=== PATIENT | female | born 1955 | race Caucasian/White ===

== ENCOUNTER 2024-09-07 20:20 | Emergency (ER) | payer OTHER, MEDICARE ==
[~2024-09-07] VITALS: Ht 160 cm; Wt 113.4 kg
== END 2024-09-08 06:08 | disposition home or self-care (01) ==
LOC: ER 20:20
DX: S09.90XA Unspecified injury of head, initial encounter (principal); S16.1XXA Strain of muscle, fascia and tendon at neck level, initial encounter; S29.012A Strain of muscle and tendon of back wall of thorax, initial encounter; I10 Essential (primary) hypertension; E11.9 Type 2 diabetes mellitus without complications; E78.5 Hyperlipidemia, unspecified; M19.90 Unspecified osteoarthritis, unspecified site; G47.00 Insomnia, unspecified; W01.0XXA Fall on same level from slipping, tripping and stumbling without subsequent striking against object, initial encounter; Z91.040 Latex allergy status; Z88.8 Allergy status to other drugs, medicaments and biological substances
CPT/HCPCS: 70450; 72070; 72125; 72128; 99284-25

== ENCOUNTER 2024-10-04 21:59 | Emergency (ER) | payer OTHER ==
[~2024-10-04] VITALS: Ht 162.6 cm; Wt 113.4 kg
[2024-10-04 22:31] LABS: BASOPHILS ABSOLUTE AUTO 0.04 K/mm3 (0.00-0.23); BASOPHILS PERCENT AUTO 0 % (0-2); EOSINOPHILS PERCENT AUTO 1 % (0-6); Hematocrit 33.3 % (33.0-51.0); Hemoglobin 9.7 g/dL (11.5-16.0); IMMATURE GRAN ABSOLUTE AUTO 0.05 K/mm3 (0.00-0.10); IMMATURE GRAN PERCENT AUTO 1 % (0-1); LYMPHOCYTES ABSOLUTE AUTO 0.59 K/mm3 (0.84-5.20); LYMPHOCYTES PERCENT AUTO 6 % (21-46); MONOCYTES PERCENT AUTO 7 % (4-13); Mean Corpuscular HGB 21.4 pg (26.0-34.0); Mean Corpuscular HGB Conc 29.1 g/dL (31.5-36.5); Mean Corpuscular Volume 74 fL (80-100); Mean Platelet Volume 9.4 fL (9.1-12.4); NEUTROPHILS ABSOLUTE AUTO 9.15 K/mm3 (1.96-9.15); NEUTROPHILS PERCENT AUTO 86 % (41-73); Platelet Count 272 K/mm3 (150-400); RDW Coefficient Variation 18.2 % (11.7-14.2); Red Blood Cell Count 4.53 M/mm3 (3.80-5.20); White Blood Cell Count 10.63 K/mm3 (4.00-11.30)
[2024-10-04 22:57] LABS: Albumin, Blood 3.1 g/dL (3.4-5.0); Albumin/Globulin Ratio 0.7 (0.8-1.8); Bilirubin, Total 0.4 mg/dL (0.1-1.0); Bun/Creatinine Ratio 19.8 (12.0-20.0); Calcium, Blood 10.3 mg/dL (8.5-10.1); Creatinine, Blood 0.66 mg/dL (0.40-1.00); Globulin, Blood 4.6 g/dL (2.2-4.0); Potassium, Blood 3.7 mmol/L (3.5-5.5); Total Protein, Blood 7.7 g/dL (6.4-8.2)
[2024-10-05] MEDS ORDERED: Lactated Ringer's 1,000 ML IV ONE (00:05)
[2024-10-05 01:42] LABS: Source, Urine Clean Catch
[2024-10-05 02:01] LABS: Bilirubin, Urine Neg (Neg); Blood, Urine 5+ (Neg); Glucose Qualitative, Urine Neg (Neg); Ketones, Urine Neg (Neg); Leukocyte Esterase, Urine 3+ (Neg); Nitrite, Urine Pos (Neg); Protein, Urine 3+ (Neg); Specific Gravity, Urine 1.015 (1.003-1.022); Urobilinogen, Urine NORM (Normal)
[2024-10-05 02:13] LABS: Appearance, Urine Hazy (Clear); Color, Urine Yellow (P-Yellow)
[2024-10-05 02:15] LABS: Bacteria Many /hpf; Squamous Epithelial Cells Few /hpf (Few); White Blood Cells, Urine 25-50 /hpf (0-5)
[2024-10-05] MEDS ORDERED: CefTRIAXone Sodium 2,000 MG in NS 100 ML IV ONE (02:40)
[2024-10-05] MEDS ORDERED: CEPH500 PO (03:04)
[2024-10-06] MEDS ORDERED: ALLO100 PO (03:30)
[2024-10-06] MEDS ORDERED: ALBU90OI INH (03:30)
[2024-10-06] MEDS ORDERED: ATOR40TA PO (03:31)
[2024-10-06] MEDS ORDERED: BACL10 PO (03:31)
[2024-10-06] MEDS ORDERED: BETA.05TCA TOP (03:32)
[2024-10-06] MEDS ORDERED: ELIQUIS5 M2 PO (03:33)
[2024-10-06] MEDS ORDERED: Colace100 MG PO (03:33)
[2024-10-06] MEDS ORDERED: Prozac20 MG PO (03:33)
[2024-10-06] MEDS ORDERED: GABA100 PO (03:34)
[2024-10-06] MEDS ORDERED: GLIP5ER PO (03:34)
[2024-10-06] MEDS ORDERED: HALLS COUGH DROPS PO (03:36)
[2024-10-06] MEDS ORDERED: TRESIBA FL100 UNIT/2 SC (03:37)
[2024-10-06] MEDS ORDERED: LIRAGLUTID0.6 MG/0.1 SC (03:38)
[2024-10-06] MEDS ORDERED: Ketoconazole120 ML TOP (03:38)
[2024-10-06] MEDS ORDERED: LOSARTAN POTAS100 M1 PO (03:38)
[2024-10-06] MEDS ORDERED: MELA3 PO (03:39)
[2024-10-06] MEDS ORDERED: [UNRECOGNIZED DRUG - OTHER] PO (03:40)
[2024-10-06] MEDS ORDERED: DOXYLAMINE PO (03:40)
[2024-10-06] MEDS ORDERED: ACETAM PO (03:40)
[2024-10-06] MEDS ORDERED: NYSTATIN15 GM TOP (03:41)
[2024-10-06] MEDS ORDERED: Oxybutynin Chlo10 MG PO (03:42)
[2024-10-06] MEDS ORDERED: QUET100 PO (03:42)
[2024-10-06] MEDS ORDERED: VENL150ER PO (03:43)
[2024-10-06] MEDS ORDERED: SAXENDA SC (03:45)
== END 2024-10-05 05:15 | disposition home or self-care (01) ==
LOC: ER 21:59
PROVIDERS: Emergency Medicine; Student in an Organized Health Care Education/Training Program
DX: N30.01 Acute cystitis with hematuria (principal); D50.9 Iron deficiency anemia, unspecified; I10 Essential (primary) hypertension; E11.9 Type 2 diabetes mellitus without complications; E66.01 Morbid (severe) obesity due to excess calories; G47.00 Insomnia, unspecified; E78.5 Hyperlipidemia, unspecified; Z91.040 Latex allergy status; Z88.8 Allergy status to other drugs, medicaments and biological substances
CPT/HCPCS: 80053; 81001; 85025; 93005; 93010; 96361; 96365; 99284-25; J0696; J7120

== ENCOUNTER 2024-10-05 10:23 | Inpatient (IN) | payer MEDICARE, OTHER ==
[~2024-10-05] VITALS: Ht 162.6 cm; Wt 111.0 kg
[~2024-10-05 10:23] MED LIST: CEPH500 PO
[2024-10-05 11:22] LABS: Albumin, Blood 2.7 g/dL (3.4-5.0); Albumin/Globulin Ratio 0.6 (0.8-1.8); Bilirubin, Total 0.3 mg/dL (0.1-1.0); Bun/Creatinine Ratio 18.4 (12.0-20.0); Calcium, Blood 9.5 mg/dL (8.5-10.1); Creatinine, Blood 0.65 mg/dL (0.40-1.00); Globulin, Blood 4.3 g/dL (2.2-4.0); Potassium, Blood 3.8 mmol/L (3.5-5.5)
[2024-10-05 11:24] LABS: BASOPHILS ABSOLUTE AUTO 0.04 K/mm3 (0.00-0.23); BASOPHILS PERCENT AUTO 1 % (0-2); EOSINOPHILS PERCENT AUTO 0 % (0-6); Hematocrit 30.4 % (33.0-51.0); Hemoglobin 8.9 g/dL (11.5-16.0); IMMATURE GRAN ABSOLUTE AUTO 0.06 K/mm3 (0.00-0.10); IMMATURE GRAN PERCENT AUTO 1 % (0-1); LYMPHOCYTES ABSOLUTE AUTO 0.37 K/mm3 (0.84-5.20); LYMPHOCYTES PERCENT AUTO 4 % (21-46); MONOCYTES PERCENT AUTO 6 % (4-13); Mean Corpuscular HGB 21.5 pg (26.0-34.0); Mean Corpuscular HGB Conc 29.3 g/dL (31.5-36.5); Mean Corpuscular Volume 74 fL (80-100); Mean Platelet Volume 9.8 fL (9.1-12.4); NEUTROPHILS ABSOLUTE AUTO 7.39 K/mm3 (1.96-9.15); NEUTROPHILS PERCENT AUTO 88 % (41-73); Platelet Count 241 K/mm3 (150-400); RDW Coefficient Variation 18.4 % (11.7-14.2); RDW Standard Deviation 48.4 fL (35.1-46.3); Red Blood Cell Count 4.13 M/mm3 (3.80-5.20); White Blood Cell Count 8.36 K/mm3 (4.00-11.30)
[2024-10-05 11:36] LABS: Base Excess Venous 2.7 mmol/L; Bicarbonate Venous 26.4 mmol/L (24.0-30.0); PCO2 Venous 43.3 mmHg (38-42); pH Blood Venous 7.41 (7.34-7.37)
[2024-10-05 11:38] LABS: Source, Urine Fem Cath
[2024-10-05 11:50] LABS: Bilirubin, Urine Neg (Neg); Blood, Urine 5+ (Neg); Glucose Qualitative, Urine Neg (Neg); Ketones, Urine Neg (Neg); Leukocyte Esterase, Urine 3+ (Neg); Nitrite, Urine Pos (Neg); Protein, Urine 3+ (Neg); Specific Gravity, Urine 1.015 (1.003-1.022); Urobilinogen, Urine NORM (Normal)
[2024-10-05 12:18] LABS: Appearance, Urine Hazy (Clear); Bacteria Few /hpf; Color, Urine Yellow (P-Yellow); Red Blood Cells, Urine 25-50 /hpf (0-2); Squamous Epithelial Cells Not Seen /hpf (Few); White Blood Cells, Urine 25-50 /hpf (0-5)
[2024-10-05] MEDS ORDERED: CefTRIAXone Sodium 2,000 MG in NS 100 ML IV ONE (12:40)
[2024-10-05] MEDS ORDERED: FLU VACC TS2024-25(6MOS UP)/PF 45 MCG/0.5 ML SYRINGE IM SCH (14:55)
[2024-10-05] MEDS ORDERED: Lactated Ringer's 1,000 ML IV SCH (14:55)
[2024-10-05] MEDS ORDERED: Ketorolac Tromethamine 15mg Vial IV ONE (15:00)
[2024-10-05] MEDS ORDERED: HydrALAZINE HCl 25 MG Tab PT PRN (15:00)
[2024-10-05] MEDS ORDERED: Lactated Ringer's 1,000 ML IV ONE (15:00)
[2024-10-05] MEDS ORDERED: Acetaminophen 500 MG Tab PO ONE (15:00)
[2024-10-05] MEDS ORDERED: Acetaminophen 500 MG Tab PO PRN (15:00)
[2024-10-05] MEDS ORDERED: Ondansetron HCl 2 MG / ML 2ML Vial IV PRN (15:00)
[2024-10-05] MEDS ORDERED: Insulin Human Lispro 100 Units/ML 3ML Syringe SC SCH (16:30)
[2024-10-05] MEDS ORDERED: CefTRIAXone Sodium 1,000 MG in NS 100 ML IV ONE (16:40)
[2024-10-05 17:31] LABS: Influenza A, PCR NEGATIVE (NEGATIVE); Influenza B, PCR NEGATIVE (NEGATIVE); Resp Syncytial Virus, PCR NEGATIVE (NEGATIVE); SARS-Cov-2 (COVID-19) PCR, MMC NEGATIVE (NEGATIVE)
[2024-10-05 20:07] VITALS: BP 114/81
[2024-10-06] MEDS ORDERED: ALBU90OI INH (03:30)
[2024-10-06] MEDS ORDERED: ALLO100 PO (03:30)
[2024-10-06] MEDS ORDERED: ATOR40TA PO (03:31)
[2024-10-06] MEDS ORDERED: BACL10 PO (03:31)
[2024-10-06] MEDS ORDERED: BETA.05TCA TOP (03:32)
[2024-10-06] MEDS ORDERED: ELIQUIS5 M2 PO (03:33)
[2024-10-06] MEDS ORDERED: Prozac20 MG PO (03:33)
[2024-10-06] MEDS ORDERED: Colace100 MG PO (03:33)
[2024-10-06] MEDS ORDERED: GABA100 PO (03:34)
[2024-10-06] MEDS ORDERED: GLIP5ER PO (03:34)
[2024-10-06] MEDS ORDERED: HALLS COUGH DROPS PO (03:36)
[2024-10-06] MEDS ORDERED: TRESIBA FL100 UNIT/2 SC (03:37)
[2024-10-06] MEDS ORDERED: LOSARTAN POTAS100 M1 PO (03:38)
[2024-10-06] MEDS ORDERED: LIRAGLUTID0.6 MG/0.1 SC (03:38)
[2024-10-06] MEDS ORDERED: Ketoconazole120 ML TOP (03:38)
[2024-10-06] MEDS ORDERED: MELA3 PO (03:39)
[2024-10-06] MEDS ORDERED: DOXYLAMINE PO (03:40)
[2024-10-06] MEDS ORDERED: ACETAM PO (03:40)
[2024-10-06] MEDS ORDERED: [UNRECOGNIZED DRUG - OTHER] PO (03:40)
[2024-10-06] MEDS ORDERED: NYSTATIN15 GM TOP (03:41)
[2024-10-06] MEDS ORDERED: QUET100 PO (03:42)
[2024-10-06] MEDS ORDERED: Oxybutynin Chlo10 MG PO (03:42)
[2024-10-06] MEDS ORDERED: VENL150ER PO (03:43)
[2024-10-06] MEDS ORDERED: SAXENDA SC (03:45)
--- NOTE | 2024-10-06 04:15 | NUR ---
SHIFT SUMMARY; AFTER ADMISSION, PATIENT SLEPT IN LONG INTERVALS. DID NOT USE CALL LIGHT AND WAS UNABLE TO GIVE ME MUCH OF HER HISTORY. IV FLUIDS INFUSING. AFEBRILE. GIVEN PRN TYLENOL FOR GENERAL DISCOMFORTS.
[2024-10-06 06:20] LABS: Hematocrit 28.5 % (33.0-51.0); Hemoglobin 8.3 g/dL (11.5-16.0); Mean Corpuscular HGB 21.3 pg (26.0-34.0); Mean Corpuscular HGB Conc 29.1 g/dL (31.5-36.5); Mean Corpuscular Volume 73 fL (80-100); Mean Platelet Volume 9.6 fL (9.1-12.4); Platelet Count 226 K/mm3 (150-400); RDW Coefficient Variation 18.6 % (11.7-14.2); RDW Standard Deviation 49.4 fL (35.1-46.3); Red Blood Cell Count 3.89 M/mm3 (3.80-5.20); White Blood Cell Count 6.09 K/mm3 (4.00-11.30)
[2024-10-06 06:54] LABS: IMMATURE RETIC FRACTION 23.3 % (2.3-16.0); RETIC HGB EQUIVALENT 23.9 pg (28.20-36.60); RETICULOCYTE ABSOLUTE 0.0705 M/mm3 (0.0200-0.1100); RETICULOCYTE COUNT PERCENT 1.85 % (0.50-2.50)
[2024-10-06 07:00] LABS: Bun/Creatinine Ratio 20.5 (12.0-20.0); Calcium, Blood 9.4 mg/dL (8.5-10.1); Creatinine, Blood 0.63 mg/dL (0.40-1.00); Magnesium, Blood 1.9 mg/dL (1.6-2.4); Potassium, Blood 3.4 mmol/L (3.5-5.5)
[2024-10-06 07:25] VITALS: BP 151/65
[2024-10-06 07:35] LABS: Percent Saturation 5.3 % (15.0-50.0)
[2024-10-06] MEDS ORDERED: Sod Ferric Gluc Complx/Sucrose 125 MG in NS 100 ML IV SCH (09:00)
[2024-10-06] MEDS ORDERED: Potassium Chloride 20 MEQ TabCR PO SCH (09:00)
[2024-10-06] MEDS ORDERED: Enoxaparin 40 MG/0.4 ML SYR SC SCH (09:00)
[2024-10-06] MEDS ORDERED: Baclofen 10 MG Tab PO PRN (09:25)
[2024-10-06] MEDS ORDERED: Docusate Sodium 100 MG Cap PO PRN (09:30)
[2024-10-06] MEDS ORDERED: Allopurinol 100 MG Tab PO SCH (09:40)
[2024-10-06] MEDS ORDERED: Betamethasone Dip 0.05% Cream 15 gm TOP SCH (09:41)
[2024-10-06] MEDS ORDERED: Losartan Potassium 50 MG Tab PO SCH (09:44)
[2024-10-06] MEDS ORDERED: Venlafaxine HCl 75 MG CapCR PO SCH (09:44)
[2024-10-06] MEDS ORDERED: Trospium Chloride 20 MG Tab PO SCH (09:47)
[2024-10-06] MEDS ORDERED: Nystatin 100,000 Unit/GM CREAM 15 GM TOP PRN (09:50)
[2024-10-06] MEDS ORDERED: Albuterol HFA200 ACT/6.7 GM INH INH PRN (09:50)
--- NOTE | 2024-10-06 12:53 | NUR ---
PHONE CALL TO PHYSICIAN: RN SPOKE TO DR. GARCIA: PT IS REPORTING 9-10/10 PAIN, SUBRAPUBIC TENDERNESS BUT IT IS MORE CONCENTRATED TO THE RIGHT QUADRANT VS THE LEFT QUADRANT UPON PALPATION. PT HAS LITTLE APPETITE, EATING YOGURT AND JELLO. SHE IS REQUESTING PAIN MEDICATION, RN CALLED DR. GARCIA WHO STATES THAT HE WILL REVIEW PAIN MEDS ON [facility]. PT IS INTERMITTENTLY CONFUSED, AND IS UNABLE TO REMEMBER THE NAME OF THE SENIOR LIVING SHE LIVES AT WITHOUT PROMPTING FROM THE NURSE.
[2024-10-06] MEDS ORDERED: OxyCODONE HCL 5 MG TAB PO PRN (13:30)
--- NOTE | 2024-10-06 13:55 | NUR ---
ASSISTING PRIMARY NURSE WITH CHART REVIEW. CALL TO [facility] REQUESTING COPY OF MAR BE FAXED. HAS NOT YET BEEN RECEIVED. HAVE BEEN ABLE TO PRINT COPY OF MAR FROM PREVIOUS VISIT FROM [facility].
[2024-10-06 16:23] VITALS: BP 162/76
[2024-10-06] MEDS ORDERED: CefTRIAXone Sodium 1,000 MG in NS 100 ML IV SCH ×2 (18:00→21:00)
[2024-10-06] MEDS ORDERED: NS 250 ML IV PRN (18:30)
[2024-10-06 20:04] VITALS: BP 200/101
--- NOTE | 2024-10-06 20:18 | NUR ---
PT IS A RESIDENT AT [facility]. LITTLE APPETITE THIS SHIFT, REQUESTING YOGURT, JELLO AND DIET PEPSI. NO INSULIN COVERAGE REQUIRED DUE TO LOWER BLOOD SUGARS. PT HAS MULTIPLE REQUESTS AND CALLS OUT "CAN YOU HELP ME?" . REQUIRES REPITITION OF INSTRUCTIONS FROM STAFF. REPORTS 8/10 ABD PAIN TO THE RLQ. TENDER TO PALPATION. PUREWICK IN PLACE SUCTIONING CYRIL URINE. ROOM AIR. A&O TO SELF, LOCATION, REQUIRED CUEING TO RECALL NAME OF ASSISTED LIVING. PT IS EAGER TO RETURN HOME. NO SIGNFICANT CHANGES THIS SHIFT.
[2024-10-06] MEDS ORDERED: Gabapentin 100 MG Cap PO SCH (21:00)
[2024-10-06] MEDS ORDERED: QUEtiapine Fumarate 100 MG Tab PO SCH (21:00)
[2024-10-06] MEDS ORDERED: Atorvastatin 40 MG Tab PO SCH (21:00)
[2024-10-06] MEDS ORDERED: Melatonin 3 MG Tab PO SCH (21:00)
[2024-10-06 23:18] VITALS: BP 176/80
[2024-10-07 04:30] VITALS: BP 188/105
--- NOTE | 2024-10-07 04:33 | NUR ---
SHIFT SUMMARY: PT IS ALERT AND ORIENTED X 2-3. PT IS CALM AND COOPERATIVE WITH CARE. PT CALLS APPROPRIATELY. PT REPORTS ABD PAIN EARLY IN THE SHIFT, PAIN MEDICATION WAS NOT YET DUE, BY THE TIME IS WAS DUE SHE HAD FALLEN ASLEEP. PT DENIES NAUSEA, VOMITING, AND SOB. PT SLEPT INTERMITTENTLY THROUGHOUT THE NIGHT. BLOOD PRESSURE RUNNING HIGH, GAVE PRN HYDRALAZINE. NO ACUTE CHANGES OR COMPLICATIONS THIS SHIFT. BED IN LOW POSITION, CALL LIGHT WITHIN REACH. WILL CONTINUE TO MONITOR.
[2024-10-07 06:19] LABS: Hematocrit 27.9 % (33.0-51.0); Hemoglobin 8.3 g/dL (11.5-16.0); Mean Corpuscular HGB 21.6 pg (26.0-34.0); Mean Corpuscular HGB Conc 29.7 g/dL (31.5-36.5); Mean Corpuscular Volume 73 fL (80-100); Mean Platelet Volume 9.6 fL (9.1-12.4); Platelet Count 217 K/mm3 (150-400); RDW Coefficient Variation 18.8 % (11.7-14.2); RDW Standard Deviation 49.3 fL (35.1-46.3); Red Blood Cell Count 3.85 M/mm3 (3.80-5.20); White Blood Cell Count 4.55 K/mm3 (4.00-11.30)
[2024-10-07 06:40] LABS: Albumin, Blood 2.2 g/dL (3.4-5.0); Albumin/Globulin Ratio 0.6 (0.8-1.8); Bilirubin, Total 0.3 mg/dL (0.1-1.0); Bun/Creatinine Ratio 16.6 (12.0-20.0); Creatinine, Blood 0.6 mg/dL (0.40-1.00); Potassium, Blood 3.3 mmol/L (3.5-5.5); Total Protein, Blood 6.2 g/dL (6.4-8.2)
[2024-10-07] MEDS ORDERED: Potassium Chloride 20 MEQ TabCR PO ONE (06:55)
[2024-10-07 07:10] LABS: BAND PERCENT MAN 9 % (0-8); BASOPHILS PERCENT MAN 0 % (0-2); EOSINOPHILS PERCENT MAN 0 % (0-6); LYMPHOCYTES ABSOLUTE MAN 0.68 K/mm3 (0.84-5.20); LYMPHOCYTES PERCENT MAN 15 % (21-46); MONOCYTES ABSOLUTE MAN 0.13 K/mm3 (0.16-1.47); MONOCYTES PERCENT MAN 3 % (4-13); NEUTROPHILS ABSOLUTE MAN 3.73 K/mm3 (1.96-9.15); SEG NEUTROPHILS PERCENT MAN 73 % (41-73); TOTAL CELLS COUNTED 100
[2024-10-07 07:15] VITALS: BP 180/91
[2024-10-07] MEDS ORDERED: Apixaban 5 MG Tab PO SCH (08:00)
[2024-10-07] MEDS ORDERED: Tamsulosin HCl 0.4 MG Cap PO SCH (08:00)
[2024-10-07] MEDS ORDERED: FLUoxetine HCL 20 MG CAP PO SCH (09:00)
[2024-10-07 14:00] VITALS: BP 180/93
--- NOTE | 2024-10-07 16:09 | NUR ---
PT A/O X 2-3, MOSTLY PLEASANT, FORGETFUL AT TIMES. DENIES PAIN. SHE HAS STATED WHEN DR FLIGHT TOWER DISPATCHER IN ROOM, THAT IS TIRED OF LIVING LIKE THIS. SOME TEARFUL AT TIMES. DENIES THOUGHTS TO HARMING SELF. PRESENTS PLEASANT THIS AFTERNOON. STATES FEELS KIDNEY PAIN BETTER. NO OTHER CONCERNS NOTED TODAY. BED IN LOW POSITION, CALL LITE IN REACH, CALLS APROP
[2024-10-07 16:24] VITALS: BP 170/115
--- NOTE | 2024-10-07 18:09 | NUR ---
PT REPORTS USUALLY SMOKES ONE PACK PER DAY. REQUEST EITHER GO SMOKE OR GET PATCH. CALLED DR ORTEGA. ORDERS PENDING
[2024-10-07 19:20] VITALS: BP 164/101
[2024-10-07] MEDS ORDERED: Nicotine 21 MG PATCH TOP SCH (20:00)
[2024-10-08 01:29] VITALS: BP 152/90
--- NOTE | 2024-10-08 04:30 | NUR ---
NOC SUMMARY- NO NEW ISSUES. PT PAIN MANAGED WELL. PT HAS BEEN RESTING QUIETLY FOR MOST OF SHIFT. PT REPOSITIONED TOLEREATED. PT CALLS NEEDED. PT PAIN MANAGED WELL PER EM[facility]. PT VOIDING VIA PUREWICK. PT BRIEF CHANGED NEEDED. PT CURRENTLY SLEEPING IN NO DIFTRESS. CALL LIGHT IN REACH AND BED ALARM ON.
[2024-10-08 05:56] LABS: Hematocrit 28.6 % (33.0-51.0); Hemoglobin 8.3 g/dL (11.5-16.0); Mean Corpuscular HGB 21.5 pg (26.0-34.0); Mean Corpuscular Volume 74 fL (80-100); Mean Platelet Volume 9.4 fL (9.1-12.4); Platelet Count 218 K/mm3 (150-400); RDW Coefficient Variation 18.8 % (11.7-14.2); RDW Standard Deviation 50.4 fL (35.1-46.3); Red Blood Cell Count 3.86 M/mm3 (3.80-5.20); White Blood Cell Count 5.26 K/mm3 (4.00-11.30)
[2024-10-08 06:17] LABS: BAND PERCENT MAN 9 % (0-8); BASOPHILS PERCENT MAN 0 % (0-2); EOSINOPHILS PERCENT MAN 2 % (0-6); LYMPHOCYTES ABSOLUTE MAN 0.63 K/mm3 (0.84-5.20); LYMPHOCYTES PERCENT MAN 12 % (21-46); MONOCYTES ABSOLUTE MAN 0.78 K/mm3 (0.16-1.47); MONOCYTES PERCENT MAN 15 % (4-13); MYELOCYTE PERCENT MAN 2 % (0-0); NEUTROPHILS ABSOLUTE MAN 3.62 K/mm3 (1.96-9.15); SEG NEUTROPHILS PERCENT MAN 60 % (41-73); TOTAL CELLS COUNTED 100
[2024-10-08 06:27] LABS: Albumin, Blood 2.1 g/dL (3.4-5.0); Albumin/Globulin Ratio 0.5 (0.8-1.8); Bilirubin, Total 0.3 mg/dL (0.1-1.0); Bun/Creatinine Ratio 18.3 (12.0-20.0); Calcium, Blood 9.2 mg/dL (8.5-10.1); Creatinine, Blood 0.55 mg/dL (0.40-1.00); Globulin, Blood 3.9 g/dL (2.2-4.0); Potassium, Blood 3.7 mmol/L (3.5-5.5)
[2024-10-08 07:13] VITALS: BP 150/77
[2024-10-08] MEDS ORDERED: HydroCHLOROthiazide 25 mg Tab PO SCH (09:00)
[2024-10-08] MEDS ORDERED: Apixaban 5 MG Tab PO SCH (09:00)
[2024-10-08] MEDS ORDERED: Potassium Chloride 20 MEQ TabCR PO SCH (09:00)
[2024-10-08] MEDS ORDERED: Nicotine 21 MG PATCH TOP SCH (09:00)
[2024-10-08] MEDS ORDERED: ACET500 PO (13:21)
[2024-10-08] MEDS ORDERED: HYDCHL25 PO (13:22)
[2024-10-08] MEDS ORDERED: POTCHL20ER PO (13:23)
[2024-10-08] MEDS ORDERED: KETO10 PO (13:23)
[2024-10-08] MEDS ORDERED: TAMS.4ER PO (13:24)
[2024-10-08] MEDS ORDERED: FERSU300 PO (13:24)
--- NOTE | 2024-10-08 14:13 | NUR ---
PATIENT CALLED, CONCERNED THAT HER PUREWICK WASN'T WORKING. CHECKED SUCTION AND IS WORKING. OFFERED AMBULATION ASSISTANCE TO BATHROOM AND SHE STATED SHE WAS PARALYZED. I ASKED HOW SHE AMBULATED AT [facility] AND SHE SAID WITH A WHEELCHAIR OR A WALKER. I TOLD HER WE COULD GET A WALKER AND AMBULATE, PROVIDING EDUCATION REGARDING DECONDITIONING. SHE SIGHED AND ASKED, "CAN YOU PLEASE JUST TURN IT BACK ON". I REENFORCED IT WAS, IN FACT, WORKING, SUCTION HISSING COULD BE HEARD. ASKED IF SHE NEEDED ANYTHING ELSE, BUT SHE TURNED HER HEAD TOWARD THE TV AND DID NOT ANSWER EITHER TIME I ASKED.
[2024-10-08 15:29] VITALS: BP 199/96
--- NOTE | 2024-10-08 17:09 | NUR ---
DISCHARGE SUMMARY: A&Ox2-3 WITH EPISODIC CONFUSION, EXPRESSIVE APHASIA. UNDERESTIMATES ABILITIES AND IS FAIRLY NONCONTRIBUTORY TO CARE. ATTEMPTED TO STAND-PIVOT TO BSC SEVERAL TIMES, BUT SHE DISAGREED AND INSISTED ON USE OF PUREWICK. TRANSFERS c FWW STAND-PIVOT AT BASELINE BUT TELLS THIS RN SHE IS PARAPLEGIC; NEURO EXAM YIELDS REFLEXES WNL. MEDS WHOLE WITH FLUIDS. NO C/O PAIN THIS SHIFT. MEDICATIONS FAXED TO [facility]. LEFT FLOOR WITH ALL BELONGINGS AND DISCHARGE PACKET, ESCORTED BY MEDICAL TRANSPORTER VIA W/C.
== END 2024-10-08 15:57 | disposition home health service (06) | DRG 689 ==
LOC: ER 10:23 → MEDS 10:24 → ER 10:24 → MEDS 10:24 → EDPENDDIS 10-08 12:14 → ENPENDDIS 10-08 12:14 → MEDS 10-08 15:57
PROVIDERS: Emergency Medicine; Nurse Practitioner Acute Care; ADMIT Internal Medicine
DX: N39.0 Urinary tract infection, site not specified (principal); G92.8 Other toxic encephalopathy; N20.2 Calculus of kidney with calculus of ureter; Z68.41 Body mass index [BMI] 40.0-44.9, adult; E11.9 Type 2 diabetes mellitus without complications; I10 Essential (primary) hypertension; E78.5 Hyperlipidemia, unspecified; M10.9 Gout, unspecified; E83.52 Hypercalcemia; J45.909 Unspecified asthma, uncomplicated; E66.01 Morbid (severe) obesity due to excess calories; F41.8 Other specified anxiety disorders; G47.00 Insomnia, unspecified; F17.210 Nicotine dependence, cigarettes, uncomplicated; N13.4 Hydroureter; E87.6 Hypokalemia; M19.91 Primary osteoarthritis, unspecified site; D50.9 Iron deficiency anemia, unspecified; Z91.040 Latex allergy status; Z88.8 Allergy status to other drugs, medicaments and biological substances; Z79.2 Long term (current) use of antibiotics
CPT/HCPCS: 0241U; 36415; 70450; 71045; 74176; 80048; 80053; 81001; 82140; 82607; 82728; 82746; 82803; 82947; 83036; 83540; 83550; 83735; 83880; 84484; 85025; 85027; 85045; 87040; 87086; 93005; 93010; 94640; 94664; 94760; 96361; 96365; 96372; 96375; 96376; 97110; 97162; 99285-25; A9270; G0378; J0696; J1650; J1885; J2916; J7050; J7120

== ENCOUNTER → 2024-10-18 | Outpatient (CLI) | payer OTHER ==
[~2024-10-18] MED LIST changes: +ACET500 PO; +ACETAM PO; +ALBU90OI INH; +ALLO100 PO; +ATOR40TA PO; +BACL10 PO; +BETA.05TCA TOP; +Colace100 MG PO; +DOXYLAMINE PO; +ELIQUIS5 M2 PO; +FERSU300 PO; +GABA100 PO; +GLIP5ER PO; +HALLS COUGH DROPS PO; +HYDCHL25 PO; +KETO10 PO; +Ketoconazole120 ML TOP; +LIRAGLUTID0.6 MG/0.1 SC; +LOSARTAN POTAS100 M1 PO; +MELA3 PO; +NYSTATIN15 GM TOP; +Oxybutynin Chlo10 MG PO; +POTCHL20ER PO; +Prozac20 MG PO; +QUET100 PO; +SAXENDA SC; +TAMS.4ER PO; +TRESIBA FL100 UNIT/2 SC; +VENL150ER PO; +[UNRECOGNIZED DRUG - OTHER] PO
[2024-10-18 18:31] LABS: Source, Urine Voided
[2024-10-18 19:29] LABS: Appearance, Urine Clear (Clear); Bilirubin, Urine Neg (Neg); Blood, Urine Neg (Neg); Color, Urine Yellow (P-Yellow); Glucose Qualitative, Urine Neg (Neg); Ketones, Urine Neg (Neg); Leukocyte Esterase, Urine 1+ (Neg); Nitrite, Urine Neg (Neg); Protein, Urine 1+ (Neg); Urobilinogen, Urine NORM (Normal)
[2024-10-18 19:41] LABS: Bacteria Mod /hpf; Red Blood Cells, Urine 0-2 /hpf (0-2); Squamous Epithelial Cells Few /hpf (Few)
== END | disposition home or self-care (01) ==
LOC: LAB SHORT 18:28 → LAB 18:28
PROVIDERS: Family Medicine
DX: N39.0 Urinary tract infection, site not specified (principal)
CPT/HCPCS: 81001; 87086

== ENCOUNTER 2024-10-28 01:27 | Emergency (ER) | payer OTHER ==
[~2024-10-28] VITALS: Ht 162.6 cm; Wt 122.5 kg
[2024-10-28 02:22] LABS: BASOPHILS ABSOLUTE AUTO 0.05 K/mm3 (0.00-0.23); BASOPHILS PERCENT AUTO 1 % (0-2); EOSINOPHILS ABSOLUTE AUTO 0.24 K/mm3 (0.00-0.68); EOSINOPHILS PERCENT AUTO 3 % (0-6); Hematocrit 36.5 % (33.0-51.0); IMMATURE GRAN ABSOLUTE AUTO 0.04 K/mm3 (0.00-0.10); IMMATURE GRAN PERCENT AUTO 1 % (0-1); LYMPHOCYTES ABSOLUTE AUTO 1.56 K/mm3 (0.84-5.20); LYMPHOCYTES PERCENT AUTO 20 % (21-46); MONOCYTES ABSOLUTE AUTO 0.57 K/mm3 (0.16-1.47); MONOCYTES PERCENT AUTO 7 % (4-13); Mean Corpuscular HGB 23.4 pg (26.0-34.0); Mean Corpuscular HGB Conc 30.1 g/dL (31.5-36.5); Mean Corpuscular Volume 78 fL (80-100); Mean Platelet Volume 9.6 fL (9.1-12.4); NEUTROPHILS ABSOLUTE AUTO 5.42 K/mm3 (1.96-9.15); NEUTROPHILS PERCENT AUTO 69 % (41-73); Platelet Count 209 K/mm3 (150-400); RDW Coefficient Variation 21.6 % (11.7-14.2); Red Blood Cell Count 4.71 M/mm3 (3.80-5.20); White Blood Cell Count 7.88 K/mm3 (4.00-11.30)
[2024-10-28] MEDS ORDERED: Morphine Sulfate 4 MG/1 ML Injection IV ONE (02:25)
[2024-10-28 02:34] LABS: Albumin, Blood 3.1 g/dL (3.4-5.0); Albumin/Globulin Ratio 0.7 (0.8-1.8); Bilirubin, Total 0.3 mg/dL (0.1-1.0); Bun/Creatinine Ratio 25.6 (12.0-20.0); Calcium, Blood 10.6 mg/dL (8.5-10.1); Creatinine, Blood 0.66 mg/dL (0.40-1.00); Globulin, Blood 4.3 g/dL (2.2-4.0); Potassium, Blood 3.9 mmol/L (3.5-5.5); Total Protein, Blood 7.4 g/dL (6.4-8.2)
[2024-10-28 02:37] LABS: Prothrombin Time Results 10.7 Sec (9.7-11.5)
[2024-10-28] MEDS ORDERED: Ketorolac Tromethamine 15mg Vial IV ONE (03:40)
== END 2024-10-28 05:38 | disposition home or self-care (01) ==
LOC: ER 01:27
PROVIDERS: Student in an Organized Health Care Education/Training Program
DX: S00.83XA Contusion of other part of head, initial encounter (principal); I10 Essential (primary) hypertension; E11.9 Type 2 diabetes mellitus without complications; M10.9 Gout, unspecified; E78.5 Hyperlipidemia, unspecified; G47.00 Insomnia, unspecified; E66.01 Morbid (severe) obesity due to excess calories; Z91.040 Latex allergy status; Z88.8 Allergy status to other drugs, medicaments and biological substances; Z79.01 Long term (current) use of anticoagulants; Z79.84 Long term (current) use of oral hypoglycemic drugs; Z79.4 Long term (current) use of insulin; Z79.899 Other long term (current) drug therapy; W07.XXXA Fall from chair, initial encounter
CPT/HCPCS: 70450; 70486; 72125; 73130; 73562-LT; 80053; 85025; 85610; 85730; 96374; 96375; 99284-25; J1885; J2270

== ENCOUNTER → 2024-12-01 | Outpatient (CLI) | payer OTHER ==
[2024-12-02 16:18] LABS: Appearance, Urine Clear (Clear); Bilirubin, Urine Neg (Neg); Blood, Urine 5+ (Neg); Glucose Qualitative, Urine 3+ (Neg); Ketones, Urine Neg (Neg); Leukocyte Esterase, Urine 1+ (Neg); Nitrite, Urine Neg (Neg); Protein, Urine 1+ (Neg); Urobilinogen, Urine NORM (Normal)
[2024-12-02 16:35] LABS: Color, Urine Pale Yellow (P-Yellow)
[2024-12-02 16:36] LABS: Bacteria Mod /hpf; Red Blood Cells, Urine 25-50 /hpf (0-2); Squamous Epithelial Cells Rare /hpf (Few)
== END | disposition home or self-care (01) ==
LOC: LAB SHORT 16:00 → LAB 16:00
DX: N39.0 Urinary tract infection, site not specified (principal)
CPT/HCPCS: 81001; 87077; 87086; 87186

== ENCOUNTER → 2024-12-05 | Outpatient (CLI) | payer OTHER ==
[2024-12-05 09:50] LABS: BASOPHILS ABSOLUTE AUTO 0.05 K/mm3 (0.00-0.23); BASOPHILS PERCENT AUTO 1 % (0-2); EOSINOPHILS ABSOLUTE AUTO 0.17 K/mm3 (0.00-0.68); EOSINOPHILS PERCENT AUTO 2 % (0-6); Hematocrit 36.1 % (33.0-51.0); Hemoglobin 11.4 g/dL (11.5-16.0); IMMATURE GRAN ABSOLUTE AUTO 0.05 K/mm3 (0.00-0.10); IMMATURE GRAN PERCENT AUTO 1 % (0-1); LYMPHOCYTES ABSOLUTE AUTO 1.09 K/mm3 (0.84-5.20); LYMPHOCYTES PERCENT AUTO 13 % (21-46); MONOCYTES ABSOLUTE AUTO 0.51 K/mm3 (0.16-1.47); MONOCYTES PERCENT AUTO 6 % (4-13); Mean Corpuscular HGB 25.3 pg (26.0-34.0); Mean Corpuscular HGB Conc 31.6 g/dL (31.5-36.5); Mean Corpuscular Volume 80 fL (80-100); Mean Platelet Volume 9.5 fL (9.1-12.4); NEUTROPHILS ABSOLUTE AUTO 6.77 K/mm3 (1.96-9.15); NEUTROPHILS PERCENT AUTO 78 % (41-73); Platelet Count 231 K/mm3 (150-400); RDW Coefficient Variation 18.6 % (11.7-14.2); Red Blood Cell Count 4.51 M/mm3 (3.80-5.20); White Blood Cell Count 8.64 K/mm3 (4.00-11.30)
[2024-12-05 09:59] LABS: Albumin/Globulin Ratio 0.7 (0.8-1.8); Bilirubin, Total 0.2 mg/dL (0.1-1.0); Bun/Creatinine Ratio 18.6 (12.0-20.0); Calcium, Blood 10.2 mg/dL (8.5-10.1); Creatinine, Blood 0.7 mg/dL (0.40-1.00); Globulin, Blood 4.4 g/dL (2.2-4.0); Potassium, Blood 3.9 mmol/L (3.5-5.5); Total Protein, Blood 7.4 g/dL (6.4-8.2)
== END ==
LOC: LAB 09:45 → LAB SHORT 09:45
DX: R10.9 Unspecified abdominal pain (principal); N39.0 Urinary tract infection, site not specified
CPT/HCPCS: 80053; 85025; 87077; 87086; 87186

== ENCOUNTER → 2025-02-07 | Outpatient (CLI) | payer MEDICARE, OTHER ==
[2025-02-07 15:24] LABS: Appearance, Urine Clear (Clear); Bilirubin, Urine Neg (Neg); Blood, Urine 1+ (Neg); Color, Urine Yellow (P-Yellow); Glucose Qualitative, Urine 4+ (Neg); Ketones, Urine Neg (Neg); Leukocyte Esterase, Urine 1+ (Neg); Nitrite, Urine Pos (Neg); Protein, Urine 2+ (Neg); Specific Gravity, Urine 1.015 (1.003-1.022); Urobilinogen, Urine NORM (Normal)
[2025-02-07 15:34] LABS: Red Blood Cells, Urine 0-2 /hpf (0-2)
[2025-02-07 15:35] LABS: Bacteria Mod /hpf; Squamous Epithelial Cells Rare /hpf (Few)
== END ==
LOC: LAB 14:51 → LAB SHORT 14:51
DX: N39.0 Urinary tract infection, site not specified (principal)
CPT/HCPCS: 81001; 87086; 87147